=== PATIENT | female | born 1990 | race Caucasian/White ===

== ENCOUNTER 2024-05-18 10:39 | Day surgery (SDC) | payer MEDICAID, OTHER ==
[~2024-05-18 10:39] MED LIST: Sodium Chloride 0.9% 10 ML Syringe FLUSH PRN; Sodium Chloride 0.9% 10 ML Syringe FLUSH SCH
[2024-05-18] MEDS: Lactated Ringers 1,000 ML IV SCH (10:55)
[2024-05-18] MEDS ORDERED: Propofol 200 MG/20 ML SDV ONE ×2 (11:05→12:12)
[2024-05-18] MEDS ORDERED: Midazolam 1 MG/ML 2 ML SDV ONE (11:05)
[2024-05-18] MEDS ORDERED: Ketamine 200 MG/20 ML MDV ONE (11:05)
[2024-05-18] MEDS ORDERED: fentaNYL 100 MCG/2 ML SDV ONE (11:05)
[2024-05-18] MEDS ORDERED: Ondansetron 4 MG/2 ML SDV ONE (11:06)
[2024-05-18] MEDS ORDERED: Lidocaine 1% 5 ML VIAL ONE (11:06)
[2024-05-18 11:11] LABS: BASOPHILS PERCENT AUTO 0.3 % (0.0-1.0); EOSINOPHILS ABSOLUTE AUTO 0.3 K/mm3 (0.0-0.4); EOSINOPHILS PERCENT AUTO 4.1 % (0.0-6.0); HEMATOCRIT 41.1 % (37.0-47.0); HEMOGLOBIN 13.1 gm/dl (12.0-16.0); IMMATURE GRAN ABSOLUTE AUTO 0.01 K/mm3 (0.00-0.05); IMMATURE GRAN PERCENT AUTO 0.2 % (0.0-0.4); LYMPHOCYTES ABSOLUTE AUTO 1.6 K/mm3 (1.0-4.8); LYMPHOCYTES PERCENT AUTO 25.8 % (24.0-44.0); MEAN CORPUSCULAR HEMOGLOBIN 26.5 pg (28.0-32.0); MEAN CORPUSCULAR HGB CONC 31.9 g/dl (32.0-36.0); MEAN PLATELET VOLUME 10.9 fl (9.4-12.3); MONOCYTES ABSOLUTE AUTO 0.4 K/mm3 (0.0-0.8); NEUTROPHILS PERCENT AUTO 62.6 % (41.0-71.0); PLATELET COUNT,PLT 215 K/mm3 (150-400); RED BLOOD CELL COUNT 4.95 M/mm3 (4.10-5.30); WHITE BLOOD CELL COUNT,WBC 6.32 K/mm3 (3.9-11.3)
[2024-05-18] MEDS: Acetaminophen 325 MG Tab PO ONE (11:19)
[2024-05-18] MEDS: Gabapentin 300 MG Cap PO ONE (11:19)
[2024-05-18] MEDS: Celecoxib 100 MG Cap PO ONE (11:19)
[2024-05-18 11:34] LABS: ANION GAP 13.2 (5-15); POTASSIUM,K 4.2 mEq/L (3.5-5.1)
[2024-05-18] MEDS ORDERED: Ketorolac 30 MG/ML SDV ONE (12:01)
[2024-05-18] MEDS: Lidocaine 1% 10 ML MDV ONE (12:30)
[2024-05-18] MEDS ORDERED: oxyCODONE 5 MG Tab PO PRN (12:41)
[2024-05-18] MEDS ORDERED: fentaNYL 100 MCG/2 ML SDV IVPUSH PRN (12:58)
[2024-05-18] MEDS ORDERED: Ondansetron 4 MG/2 ML SDV IVPUSH PRN (12:58)
[2024-05-18] MEDS: HYDROmorphone 0.5 MG/0.5 ML Syringe IVPUSH PRN (13:00)
== END 2024-05-18 15:15 | disposition home or self-care (01) ==
LOC: JD.SDS 10:39
PROVIDERS: ATTEND Obstetrics & Gynecology
DX: N84.0 Polyp of corpus uteri (principal); N81.4 Uterovaginal prolapse, unspecified; Z79.899 Other long term (current) drug therapy
CPT/HCPCS: 00952; 36415; 80051; 81025; 85025; A9270-GY; J1885; J2250; J2405; J2704; J3010; J3490; J7120

== ENCOUNTER 2024-08-10 06:15 | Day surgery (SDC) | payer MEDICAID ==
[2024-08-10] MEDS: Lactated Ringers 1,000 ML IV SCH (06:30)
[2024-08-10] MEDS ORDERED: Ondansetron 4 MG/2 ML SDV ONE (06:31)
[2024-08-10] MEDS ORDERED: Sugammadex Sodium 200 MG/2 ML VIAL IV ONE (06:31)
[2024-08-10] MEDS ORDERED: Ketorolac 30 MG/ML SDV ONE (06:31)
[2024-08-10] MEDS ORDERED: Dexamethasone 4 MG/ML 5 ML MDV ONE (06:31)
[2024-08-10] MEDS ORDERED: dexmedeTOMIDine HCl 200 MCG/2 ML SDV ONE (06:31)
[2024-08-10] MEDS ORDERED: Midazolam 1 MG/ML 2 ML SDV ONE (06:31)
[2024-08-10] MEDS ORDERED: Propofol 200 MG/20 ML SDV ONE ×3 (06:31→08:26)
[2024-08-10] MEDS ORDERED: Rocuronium 50 MG/5 ML Vial ONE (06:31)
[2024-08-10] MEDS ORDERED: fentaNYL 250 MCG/5 ML SDV ONE (06:31)
[2024-08-10] MEDS ORDERED: Sodium Chloride 0.9% 100 ML ONE (06:32)
[2024-08-10] MEDS ORDERED: ceFAZolin 2 GM Vial ONE (06:32)
[2024-08-10] MEDS ORDERED: Lidocaine 2% 5 ML SDV ONE (06:32)
[2024-08-10] MEDS ORDERED: Lidocaine 1% with EPINEPHrine 1:100,000 20 ML MDV ONE (06:37)
[2024-08-10 06:42] LABS: APPEARANCE,URINE SLT CLOUDY (Clear); BILIRUBIN,URINE NEGATIVE (Negative); COLOR,URINE YELLOW (Yellow); GLUCOSE,URINE NEGATIVE (Negative); KETONES,URINE NEGATIVE (Negative); LEUKOCYTE ESTERASE,URINE NEGATIVE (Negative); NITRITE,URINE NEGATIVE (Negative); OCCULT BLOOD,URINE NEGATIVE (Negative); PROTEIN,URINE NEGATIVE (Negative); UROBILINOGEN,URINE 0.2 (0.2-1.0)
[2024-08-10 06:47] LABS: BASOPHILS PERCENT AUTO 0.4 % (0.0-1.0); EOSINOPHILS ABSOLUTE AUTO 0.2 K/mm3 (0.0-0.4); HEMATOCRIT 37.5 % (37.0-47.0); HEMOGLOBIN 12.5 gm/dl (12.0-16.0); IMMATURE GRAN ABSOLUTE AUTO 0.03 K/mm3 (0.00-0.05); IMMATURE GRAN PERCENT AUTO 0.4 % (0.0-0.4); LYMPHOCYTES ABSOLUTE AUTO 2.6 K/mm3 (1.0-4.8); LYMPHOCYTES PERCENT AUTO 34.2 % (24.0-44.0); MEAN CORPUSCULAR HGB CONC 33.3 g/dl (32.0-36.0); MEAN PLATELET VOLUME 10.4 fl (9.4-12.3); MONOCYTES ABSOLUTE AUTO 0.5 K/mm3 (0.0-0.8); MONOCYTES PERCENT AUTO 6.7 % (0.0-8.0); NEUTROPHILS ABSOLUTE AUTO 4.3 K/mm3 (1.8-7.7); NEUTROPHILS PERCENT AUTO 55.3 % (41.0-71.0); PLATELET COUNT,PLT 238 K/mm3 (150-400); RED BLOOD CELL COUNT 4.81 M/mm3 (4.10-5.30); WHITE BLOOD CELL COUNT,WBC 7.73 K/mm3 (3.9-11.3)
[2024-08-10] MEDS: Celecoxib 100 MG Cap PO ONE (06:47)
[2024-08-10] MEDS: Gabapentin 300 MG Cap PO ONE (06:48)
[2024-08-10] MEDS: Phenazopyridine 95 MG Tab PO ONE (06:48)
[2024-08-10] MEDS: Acetaminophen 325 MG Tab PO ONE (06:48)
[2024-08-10] MEDS ORDERED: Ondansetron 4 MG/2 ML SDV IVPUSH PRN (06:54)
[2024-08-10] MEDS ORDERED: fentaNYL 100 MCG/2 ML SDV IVPUSH PRN (06:54)
[2024-08-10] MEDS ORDERED: HYDROmorphone 0.5 MG/0.5 ML Syringe IVPUSH PRN (06:54)
[2024-08-10 06:55] LABS: ANION GAP 12.1 (5-15); BUN/CREATININE RATIO 18.6 (14-18); CALCIUM 8.6 mg/dL (8.5-10.1); CREATININE 0.7 mg/dL (0.55-1.02); EST CRCL DRUG DOSING (CG) 93.68 mL/min; POTASSIUM,K 4.1 mEq/L (3.5-5.1)
[2024-08-10 07:30] LABS: SLIDE REVIEW ABNORMAL SMEAR
[2024-08-10] MEDS: Lidocaine 1% with EPINEPHrine 1:100,000 20 ML MDV ONE (07:36)
[2024-08-10] MEDS ORDERED: Esmolol 100 MG/10 ML SDV ONE (07:55)
[2024-08-10] MEDS: oxyCODONE 5 MG Tab PO ONE (10:33)
== END 2024-08-10 11:05 ==
LOC: JD.SDS 06:15 → EDSTATUS 07:30 → JD.SDS 11:05
PROVIDERS: ATTEND Obstetrics & Gynecology
DX: D25.2 Subserosal leiomyoma of uterus (principal); N81.2 Incomplete uterovaginal prolapse; N81.10 Cystocele, unspecified; N72 Inflammatory disease of cervix uteri; N83.8 Other noninflammatory disorders of ovary, fallopian tube and broad ligament; Z79.899 Other long term (current) drug therapy
CPT/HCPCS: 36415; 57240; 58262; 80048; 81003; 81025; 85025; 86850; 86900; 86901; A9270; J0690; J1100; J1596; J1885; J2003; J2004; J2250; J2405; J2704; J3010; J3490; J7120; 00944